=== PATIENT | male | born 1945 | race African-American/Black ===

== ENCOUNTER 2020-05-17 10:22 | Emergency (ER) | payer MEDICARE, MEDICAID ==
[~2020-05-17] VITALS: Ht 172.7 cm; Wt 109.0 kg
[2020-05-17 11:51] LABS: CHLORIDE 104 mEq/L (98-107)
[2020-05-17 12:32] LABS: BASOPHILS % 1.2 % (0.0-2.0); HEMATOCRIT. 30.3 % (42.0-52.0); HEMOGLOBIN. 10.1 g/dL (14.0-18.0); LYMPHOCYTES % 19.4 % (20.0-50.0); MEAN CORPUSCULAR HEMOGLOBIN 33.8 pg (28.0-32.0); MEAN CORPUSCULAR VOLUME 101.1 fL (80.0-94.0); MEAN PLATELET VOLUME 10.3 fl (7.4-10.4); MONOCYTES % 13.3 % (2.0-8.0); NEUTROPHILS % 63.1 % (40.0-76.0); PLATELET 92 x1000/uL (130-400); RED BLOOD CELL COUNT 2.99 mill/uL (4.7-6.1); RED CELL DISTRIBUTION WIDTH 16.8 % (11.6-14.6)
[2020-05-17] MEDS ORDERED: FUROSEMIDE 100MG/10ML VIAL IV STA (12:44)
[2020-05-17] MEDS ORDERED: INSULIN REGULAR (HUMULIN R) 300UNITS/3ML IV ONE (12:45)
[2020-05-17] MEDS ORDERED: ALBUTEROL (0.083%) 2.5MG/3ML NEB HHN ONE (12:45)
[2020-05-17] MEDS ORDERED: SODIUM BICARBONATE 8.4% 1 MEQ/ML 50ML SYR IV ONE (12:45)
[2020-05-17] MEDS ORDERED: CALCIUM CHLORIDE 1GM/10ML SYR IV ONE (12:45)
[2020-05-17] MEDS ORDERED: DEXTROSE 50% WATER 50ML SYRINGE IV ONE (12:45)
[2020-05-17 13:00] VITALS: BP 142/86
[2020-05-17] MEDS ORDERED: ACETAMINOPHEN 325MG TABLET PO PRN (14:15)
[2020-05-17] MEDS ORDERED: ONDANSETRON HCL 4MG/2ML INJ IV PRN (14:15)
[2020-05-17] MEDS ORDERED: CLONIDINE 0.1MG TABLET PO PRN (14:15)
[2020-05-17] MEDS ORDERED: DIPHENHYDRAMINE 50MG/ML VIAL IV PRN (14:15)
[2020-05-17] MEDS ORDERED: IPRATROPIUM/ALBUTEROL 0.5-3(2.5)MG/3ML NEB HHN PRN (14:15)
[2020-05-17 14:27] LABS: PHOSPHORUS 7.4 mg/dL (2.5-4.9)
== END 2020-05-17 14:15 | disposition left against medical advice (07) ==
LOC: ER 10:29 → CANBEDREQ 14:43
DX: E87.5 Hyperkalemia (principal); E87.70 Fluid overload, unspecified; Z91.15 Patient's noncompliance with renal dialysis; I13.2 Hypertensive heart and chronic kidney disease with heart failure and with stage 5 chronic kidney disease, or end stage renal disease; E11.22 Type 2 diabetes mellitus with diabetic chronic kidney disease; N18.6 End stage renal disease; I50.9 Heart failure, unspecified; Z99.2 Dependence on renal dialysis; Z79.4 Long term (current) use of insulin; Z71.89 Other specified counseling
CPT/HCPCS: 36415; 71045; 80053; 82962; 83735; 83880; 84100; 84484; 85025; 93005; 94640; 99285

== ENCOUNTER 2020-09-24 17:51 | Inpatient (IN) | payer MEDICARE, MEDICAID ==
[~2020-09-24] VITALS: Ht 185.4 cm; Wt 102.5 kg
[2020-09-24] MEDS ORDERED: NITROGLYCERIN OINT 1GM/INCH UDPKT TD ONE (18:30)
[2020-09-24] MEDS ORDERED: ASPIRIN 81MG TABLET PO ONE (18:30)
[2020-09-24] MEDS ORDERED: SODIUM CHLORIDE 0.9% 1,000 ML IV ONE (18:45)
[2020-09-24 19:08] LABS: BASOPHILS % 1.4 % (0.0-2.0); EOSINOPHILS % 5.9 % (0.0-5.0); HEMATOCRIT. 37.9 % (42.0-52.0); HEMOGLOBIN. 12.6 g/dL (14.0-18.0); LYMPHOCYTES % 25.1 % (20.0-50.0); MEAN CORPUSCULAR HEMOGLOBIN 33.4 pg (28.0-32.0); MEAN CORPUSCULAR VOLUME 100.1 fL (80.0-94.0); MONOCYTES % 14.8 % (2.0-8.0); NEUTROPHILS % 52.8 % (40.0-76.0); PLATELET 223 x1000/uL (130-400); RED BLOOD CELL COUNT 3.79 mill/uL (4.7-6.1); RED CELL DISTRIBUTION WIDTH 18.8 % (11.6-14.6)
[2020-09-24] MEDS ORDERED: VANCOMYCIN 1 G PREMIX 200 ML IV ONE (19:15)
[2020-09-24] MEDS ORDERED: SODIUM CHLORIDE 0.9% 1000ML BAG (SEPSIS BOLUS) IV ONE (19:15)
[2020-09-24] MEDS ORDERED: PIPERACILLIN/TAZ 3.375G PREMIX 50 ML IV ONE (19:15)
[2020-09-24 19:17] LABS: CHLORIDE 96 mEq/L (98-107)
[2020-09-24 19:20] LABS: INR 1.1; PROTHROMBIN TIME 11.6 sec (9.6-11.0)
[2020-09-24] MEDS ORDERED: CLONIDINE 0.1MG TABLET PO PRN (22:15)
[2020-09-24] MEDS ORDERED: GUAIFENESIN 200MG/10ML SUGAR FREE UDC PO PRN (22:15)
[2020-09-24] MEDS ORDERED: MAGNESIUM/ALUMINUM HYDROXIDE/SIMETHICONE 30ML UDC PO PRN (22:15)
[2020-09-24] MEDS ORDERED: TRAMADOL 50MG TABLET PO PRN (22:15)
[2020-09-24] MEDS ORDERED: IPRATROPIUM/ALBUTEROL 0.5-3(2.5)MG/3ML NEB NEB PRN (22:15)
[2020-09-24] MEDS ORDERED: DOCUSATE SODIUM 100MG CAPSULE PO PRN (22:15)
[2020-09-24] MEDS ORDERED: NITROGLYCERIN 0.4MG TABLET SL SL PRN (22:15)
[2020-09-24] MEDS ORDERED: ONDANSETRON HCL 4MG/2ML INJ IV PRN (22:15)
[2020-09-24] MEDS ORDERED: DIPHENHYDRAMINE 50MG/ML VIAL IV PRN (22:15)
[2020-09-24] MEDS ORDERED: PIPERACILLIN/TAZ 3.375G PREMIX 50 ML IV SCH (22:15)
[2020-09-24] MEDS ORDERED: ACETAMINOPHEN 325MG TABLET PO PRN ×2 (22:15)
[2020-09-24] MEDS ORDERED: ZOLPIDEM TARTRATE 5MG TABLET PO PRN (22:15)
[2020-09-24] MEDS ORDERED: SODIUM CHLORIDE 0.9% 500 ML IV ONE (22:45)
[2020-09-24 23:11] LABS: VITAMIN B12 SERUM 1446 pg/mL (211-911)
[2020-09-25] VITALS (12 sets, daily range): BP systolic 83–124; BP diastolic 54–72
[2020-09-25] MEDS ORDERED: PIPERACILLIN/TAZOBACTAM 2.25 G in DEXTROSE 5% WATER 50 ML IV SCH
[2020-09-25] MEDS: ENOXAPARIN 40MG/0.4ML SYR SUBCUT SCH ×2 (01:14→20:42)
[2020-09-25] MEDS ORDERED: NAPHADR EACHEYE (04:12)
[2020-09-25] MEDS ORDERED: WARF1TAB85 MT (04:12)
[2020-09-25] MEDS ORDERED: DEXT10TA4 MT (04:12)
[2020-09-25] MEDS ORDERED: CALC-1042 PO (04:12)
[2020-09-25] MEDS: ASCORBIC ACID 500 MG TABLET PO SCH ×2 (08:19→20:42)
[2020-09-25] MEDS: ZINC SULFATE 220 MG ( 50 ) CAPSULE PO SCH (08:19)
[2020-09-25] MEDS: CHOLECALCIFEROL (D3) 1000 UNIT TABLET PO SCH (08:20)
[2020-09-25] MEDS: SEVELAMER CARBONATE 800 MG TABLET PO SCH ×3 (08:20→18:07)
[2020-09-25] MEDS: FAMOTIDINE 20MG TABLET PO SCH (08:20)
[2020-09-25] MEDS: ASPIRIN 325MG EC TABLET PO SCH (08:20)
[2020-09-25] MEDS: PIPERACILLIN/TAZOBACTAM 2.25 G in DEXTROSE 5% WATER 50 ML IV SCH ×3 (08:23→23:41)
[2020-09-25] MEDS ORDERED: DEXTROSE 50% WATER 50ML SYRINGE IV PRN (09:15)
[2020-09-25] MEDS ORDERED: VANCOMYCIN 1 G PREMIX 200 ML IV NR (12:00)
[2020-09-25 12:13] LABS: HEMATOCRIT. 32.3 % (42.0-52.0); HEMOGLOBIN. 10.6 g/dL (14.0-18.0); MEAN CORPUSCULAR HEMOGLOBIN 33.1 pg (28.0-32.0); PLATELET 126 x1000/uL (130-400); RED BLOOD CELL COUNT 3.19 mill/uL (4.7-6.1); RED CELL DISTRIBUTION WIDTH 17.9 % (11.6-14.6)
[2020-09-25] MEDS: INSULIN LISPRO 100 UNITS/ML SUBCUT SCH ×3 (12:21→21:00)
[2020-09-25] MEDS: BLOOD SUGAR DIAGNOSTIC STRIP TEST SCH ×3 (12:21→21:00)
[2020-09-25 12:49] LABS: CHLORIDE 102 mEq/L (98-107)
[2020-09-25 12:57] LABS: PHOSPHORUS 4.8 mg/dL (2.5-4.9)
[2020-09-25 12:58] LABS: CREATINE KINASE MB FRACTION 2.3 ng/mL (0.5-3.6); LDL CHOLESTEROL 75 mg/dL (5-100)
[2020-09-25 12:59] LABS: CREATINE KINASE 217 IU/L (39-308)
[2020-09-25 13:00] LABS: HDL CHOLESTEROL 47 mg/dL (40-59)
[2020-09-25 16:38] LABS: PLATELET ESTIMATE DECREASED
[2020-09-25] MEDS ORDERED: ALBUMIN HUMAN 25GM/100ML (25%) IV NR (18:00)
[2020-09-25] MEDS: MIDODRINE HCL 2.5MG TABLET PO SCH (18:06)
[2020-09-25 18:40] LABS: CREATINE KINASE MB FRACTION 2.1 ng/mL (0.5-3.6)
[2020-09-25] MEDS ORDERED: ASPIRIN 81MG TABLET ONE (22:12)
[2020-09-26] VITALS (16 sets, daily range): BP systolic 38–143; BP diastolic 24–77
[2020-09-26 06:35] LABS: HEMATOCRIT. 31.2 % (42.0-52.0); HEMOGLOBIN. 10.5 g/dL (14.0-18.0); MEAN CORPUSCULAR VOLUME 101.1 fL (80.0-94.0); MEAN PLATELET VOLUME 9.7 fl (7.4-10.4); PLATELET 110 x1000/uL (130-400); RED BLOOD CELL COUNT 3.08 mill/uL (4.7-6.1); RED CELL DISTRIBUTION WIDTH 17.5 % (11.6-14.6)
[2020-09-26 06:46] LABS: PHOSPHORUS 5.7 mg/dL (2.5-4.9)
[2020-09-26] MEDS: BLOOD SUGAR DIAGNOSTIC STRIP TEST SCH ×4 (07:30→21:00)
[2020-09-26] MEDS: INSULIN LISPRO 100 UNITS/ML SUBCUT SCH ×4 (08:00→21:00)
[2020-09-26] MEDS: PIPERACILLIN/TAZOBACTAM 2.25 G in DEXTROSE 5% WATER 50 ML IV SCH ×3 (10:00→23:54)
[2020-09-26] MEDS: ASCORBIC ACID 500 MG TABLET PO SCH ×2 (10:01→21:03)
[2020-09-26] MEDS: FAMOTIDINE 20MG TABLET PO SCH (10:01)
[2020-09-26] MEDS: CHOLECALCIFEROL (D3) 1000 UNIT TABLET PO SCH (10:01)
[2020-09-26] MEDS: ZINC SULFATE 220 MG ( 50 ) CAPSULE PO SCH (10:01)
[2020-09-26] MEDS: MIDODRINE HCL 2.5MG TABLET PO SCH ×3 (10:04→17:51)
[2020-09-26] MEDS: ASPIRIN 325MG EC TABLET PO SCH (10:16)
[2020-09-26] MEDS: SEVELAMER CARBONATE 800 MG TABLET PO SCH ×3 (10:16→17:51)
[2020-09-26 13:40] LABS: PLATELET ESTIMATE DECREASED
[2020-09-26] MEDS: ENOXAPARIN 40MG/0.4ML SYR SUBCUT SCH (21:00)
[2020-09-27] VITALS (9 sets, daily range): BP systolic 95–120; BP diastolic 52–83
[2020-09-27 05:52] LABS: HEMATOCRIT. 31.6 % (42.0-52.0); HEMOGLOBIN. 10.5 g/dL (14.0-18.0); MEAN CORPUSCULAR HEMOGLOBIN 33.4 pg (28.0-32.0); MEAN CORPUSCULAR VOLUME 100.1 fL (80.0-94.0); MEAN PLATELET VOLUME 10.3 fl (7.4-10.4); PLATELET 122 x1000/uL (130-400); RED BLOOD CELL COUNT 3.16 mill/uL (4.7-6.1); RED CELL DISTRIBUTION WIDTH 17.9 % (11.6-14.6)
[2020-09-27] MEDS: BLOOD SUGAR DIAGNOSTIC STRIP TEST SCH ×2 (07:30→12:30)
[2020-09-27] MEDS: INSULIN LISPRO 100 UNITS/ML SUBCUT SCH ×2 (08:00→13:00)
[2020-09-27] MEDS: CHOLECALCIFEROL (D3) 1000 UNIT TABLET PO SCH (08:50)
[2020-09-27] MEDS: ZINC SULFATE 220 MG ( 50 ) CAPSULE PO SCH (08:50)
[2020-09-27] MEDS: SEVELAMER CARBONATE 800 MG TABLET PO SCH ×2 (08:50→14:08)
[2020-09-27] MEDS: ASCORBIC ACID 500 MG TABLET PO SCH (08:50)
[2020-09-27] MEDS: ASPIRIN 325MG EC TABLET PO SCH (08:50)
[2020-09-27] MEDS: PIPERACILLIN/TAZOBACTAM 2.25 G in DEXTROSE 5% WATER 50 ML IV SCH (08:50)
[2020-09-27] MEDS: FAMOTIDINE 20MG TABLET PO SCH (08:51)
[2020-09-27] MEDS: MIDODRINE HCL 2.5MG TABLET PO SCH ×2 (08:54→14:08)
[2020-09-27 13:23] LABS: PLATELET ESTIMATE SLIGHTLY DECREASED
[2020-09-27] MEDS ORDERED: VANCOMYCIN 1250MG in DEXTROSE 5% WATER 250ML IV NR (14:00)
== END 2020-09-27 18:35 | DRG 871 ==
LOC: ER 17:51 → MICUSO 21:49 → EDBEDREQTM 21:56 → EDBEDREQ 21:56 → 5EST 09-25 02:15
PROVIDERS: ADMIT Internal Medicine; ATTEND Internal Medicine
PROC: 5A1D70Z Performance of Urinary Filtration, Intermittent, Less than 6 Hours Per Day (ICD-10-PCS; principal; 2020-09-26)
DX: A41.9 Sepsis, unspecified organism (principal); J18.9 Pneumonia, unspecified organism; N18.6 End stage renal disease; R65.21 Severe sepsis with septic shock; E44.0 Moderate protein-calorie malnutrition; I50.30 Unspecified diastolic (congestive) heart failure; I13.2 Hypertensive heart and chronic kidney disease with heart failure and with stage 5 chronic kidney disease, or end stage renal disease; I42.9 Cardiomyopathy, unspecified; I95.9 Hypotension, unspecified; E87.5 Hyperkalemia; E11.22 Type 2 diabetes mellitus with diabetic chronic kidney disease; Z20.822 Contact with and (suspected) exposure to COVID-19; Z99.2 Dependence on renal dialysis; Z79.4 Long term (current) use of insulin; Z82.49 Family history of ischemic heart disease and other diseases of the circulatory system; Z95.810 Presence of automatic (implantable) cardiac defibrillator; Z68.29 Body mass index [BMI] 29.0-29.9, adult
CPT/HCPCS: 36415; 71045; 80048; 80053; 80061; 80202; 82550; 82553; 82607; 82962; 83036; 83605; 83615; 83735; 84100; 84145; 84484; 85025; 85379; 87426; 93005; 93970; 96365; 97162; 97166; 99291; J1200; J1650; J2543; J3370; J7030; J7040; J7060; P9047

== ENCOUNTER 2020-10-24 20:42 | Inpatient (IN) | payer MEDICARE, MEDICAID ==
[~2020-10-24] VITALS: Ht 180.3 cm; Wt 102.3 kg
[~2020-10-24 20:42] MED LIST: CALC-1042 PO; DEXT10TA4 MT; NAPHADR EACHEYE; WARF1TAB85 MT
[2020-10-24 21:45] LABS: BASOPHILS % 1.7 % (0.0-2.0); EOSINOPHILS % 3.5 % (0.0-5.0); HEMATOCRIT. 30.3 % (42.0-52.0); HEMOGLOBIN. 10.3 g/dL (14.0-18.0); LYMPHOCYTES % 9.2 % (20.0-50.0); MEAN CORPUSCULAR HEMOGLOBIN 33.6 pg (28.0-32.0); MEAN CORPUSCULAR VOLUME 98.7 fL (80.0-94.0); MEAN PLATELET VOLUME 9.8 fl (7.4-10.4); MONOCYTES % 9.4 % (2.0-8.0); NEUTROPHILS % 76.2 % (40.0-76.0); PLATELET 125 x1000/uL (130-400); RED BLOOD CELL COUNT 3.07 mill/uL (4.7-6.1); RED CELL DISTRIBUTION WIDTH 16.7 % (11.6-14.6)
[2020-10-24 21:53] LABS: CHLORIDE 99 mEq/L (98-107)
[2020-10-24 21:58] LABS: ETHANOL BLOOD < 10 mg/dL
[2020-10-24 22:03] LABS: T4 FREE 1.29 ng/dL (0.76-1.46)
[2020-10-24 22:11] LABS: INR 1.8; PARTIAL THROMBOPLASTIN TIME 40.8 sec (23.4-31.0); PROTHROMBIN TIME 18.8 sec (9.6-11.0)
[2020-10-25] MEDS ORDERED: HYDROCODONE/ACETAMINOPHEN 5/325MG TABLET PO PRN (04:00)
[2020-10-25] MEDS ORDERED: ENOXAPARIN 40MG/0.4ML SYR SUBCUT SCH (04:00)
[2020-10-25] MEDS ORDERED: CLONIDINE 0.1MG TABLET PO PRN (04:00)
[2020-10-25] MEDS ORDERED: ACETAMINOPHEN 325MG TABLET PO PRN (04:00)
[2020-10-25] MEDS ORDERED: ONDANSETRON HCL 4MG/2ML INJ IV PRN (04:00)
[2020-10-25] MEDS ORDERED: MORPHINE SULFATE 2 MG/ML CPJ (NOT FOR IM USE) IV PRN (04:00)
[2020-10-25 05:57] VITALS: BP 114/66
[2020-10-25] MEDS ORDERED: ENOXAPARIN 30MG/0.3ML SYR SUBCUT SCH ×2 (06:00→10:00)
[2020-10-25] MEDS ORDERED: ASPIRIN 81MG EC TABLET PO SCH (09:00)
[2020-10-25] MEDS ORDERED: MAGNESIUM/ALUMINUM HYDROXIDE/SIMETHICONE 30ML UDC PO PRN (09:00)
[2020-10-25] MEDS ORDERED: METOPROLOL TARTRATE 25MG TABLET PO SCH (09:00)
[2020-10-25] MEDS ORDERED: POTASSIUM CHLORIDE 20MEQ TABLET SR PO NR (09:00)
[2020-10-25] MEDS ORDERED: DOCUSATE SODIUM 100MG CAPSULE PO PRN (09:00)
[2020-10-25 12:00] VITALS: BP 99/59
[2020-10-25 13:11] VITALS: BP 126/78
[2020-10-25] MEDS ORDERED: AMIODARONE HCL 200 MG TABLET PO SCH (15:00)
== END 2020-10-25 18:32 | disposition home or self-care (01) | DRG 280 ==
LOC: ER 20:42 → 5EST 22:31 → EDBEDREQ 22:35 → EDBEDREQSVC 23:19 → ENRESERV 23:35
PROVIDERS: ADMIT Hospitalist; ATTEND Hospitalist
PROC: 4B02XTZ Measurement of Cardiac Defibrillator, External Approach (ICD-10-PCS; principal; 2020-10-24)
DX: T82.897A Other specified complication of cardiac prosthetic devices, implants and grafts, initial encounter (principal); N18.6 End stage renal disease; I21.A1 Myocardial infarction type 2; I50.23 Acute on chronic systolic (congestive) heart failure; R57.8 Other shock; I13.2 Hypertensive heart and chronic kidney disease with heart failure and with stage 5 chronic kidney disease, or end stage renal disease; E44.1 Mild protein-calorie malnutrition; C67.9 Malignant neoplasm of bladder, unspecified; I48.0 Paroxysmal atrial fibrillation; D63.1 Anemia in chronic kidney disease; E87.6 Hypokalemia; I36.1 Nonrheumatic tricuspid (valve) insufficiency; E11.22 Type 2 diabetes mellitus with diabetic chronic kidney disease; Z99.2 Dependence on renal dialysis; Z95.810 Presence of automatic (implantable) cardiac defibrillator; Z82.49 Family history of ischemic heart disease and other diseases of the circulatory system
CPT/HCPCS: 36415; 71045; 80053; 80320; 83735; 83880; 84439; 84443; 84484; 85025; 93005; 93306; 93970; 99291; J1650; G0480

== ENCOUNTER 2020-10-26 21:54 | Inpatient (IN) | payer MEDICARE, MEDICAID ==
[~2020-10-26] VITALS: Ht 181.6 cm; Wt 102.7 kg
[2020-10-26] MEDS ORDERED: ACETAMINOPHEN 325MG TABLET PO STA (22:20)
[2020-10-26] MEDS ORDERED: VANCOMYCIN 1 G PREMIX 200 ML IV ONE (22:30)
[2020-10-26] MEDS ORDERED: PIPERACILLIN/TAZ 3.375G PREMIX 50 ML IV ONE (22:30)
[2020-10-26 23:33] LABS: HEMATOCRIT. 28.3 % (42.0-52.0); HEMOGLOBIN. 9.8 g/dL (14.0-18.0); MEAN CORPUSCULAR HEMOGLOBIN 33.7 pg (28.0-32.0); MEAN CORPUSCULAR VOLUME 97.5 fL (80.0-94.0); MEAN PLATELET VOLUME 9.3 fl (7.4-10.4); PLATELET 123 x1000/uL (130-400); RED CELL DISTRIBUTION WIDTH 17.1 % (11.6-14.6)
[2020-10-26 23:37] LABS: CHLORIDE 96 mEq/L (98-107)
[2020-10-26 23:44] LABS: INR 1.4; PROTHROMBIN TIME 14.3 sec (9.6-11.0)
[2020-10-26] MEDS ORDERED: AMIODARONE HCL 150 MG in DEXT 5% WATER 97 ML IV ONE (23:45)
[2020-10-27] VITALS (37 sets, daily range): BP systolic 74–118; BP diastolic 44–77
[2020-10-27] MEDS: HYDROCODONE/ACETAMINOPHEN 10/325MG TABLET PO PRN ×2 (03:16→23:33)
[2020-10-27 04:00] LABS: PLATELET ESTIMATE SLIGHTLY DECREASED
[2020-10-27 09:36] LABS: HEMATOCRIT. 28.6 % (42.0-52.0); HEMOGLOBIN. 9.5 g/dL (14.0-18.0); MEAN CORPUSCULAR HEMOGLOBIN 32.9 pg (28.0-32.0); MEAN CORPUSCULAR VOLUME 99.4 fL (80.0-94.0); PLATELET 111 x1000/uL (130-400); RED BLOOD CELL COUNT 2.88 mill/uL (4.7-6.1); RED CELL DISTRIBUTION WIDTH 17.1 % (11.6-14.6)
[2020-10-27] MEDS: FOLIC ACID/VITAMIN B COMP W-C TABLET PO SCH (09:54)
[2020-10-27] MEDS: SEVELAMER CARBONATE 800 MG TABLET PO SCH ×3 (09:55→17:33)
[2020-10-27] MEDS ORDERED: PIPERACILLIN/TAZOBACTAM 3.375 G in DEXT 5% WATER 100 ML IV SCH (11:00)
[2020-10-27] MEDS ORDERED: ONDANSETRON HCL 4MG/2ML INJ IV PRN (11:00)
[2020-10-27] MEDS: MIDODRINE HCL 5MG TABLET PO SCH ×2 (11:38→17:33)
[2020-10-27] MEDS ORDERED: VANCOMYCIN 1 G PREMIX 200 ML IV SCH (13:00)
[2020-10-27] MEDS: PIPERACILLIN/TAZOBACTAM 2.25 G in DEXTROSE 5% WATER 50 ML IV SCH (13:02)
[2020-10-27] MEDS: LACTULOSE 20G/30ML UDC PO PRN ×2 (14:09→23:32)
[2020-10-27] MEDS: DOCUSATE SODIUM 100MG CAPSULE PO SCH (17:33)
[2020-10-27 19:31] LABS: PLATELET ESTIMATE DECREASED
[2020-10-27] MEDS ORDERED: EPOETIN ALFA-EPBX 10,000 UNIT/ML VIAL SUBCUT SCH (21:00)
[2020-10-28] VITALS (62 sets, daily range): BP systolic 60–129; BP diastolic 23–93
[2020-10-28] MEDS: PIPERACILLIN/TAZOBACTAM 2.25 G in DEXTROSE 5% WATER 50 ML IV SCH (01:21)
[2020-10-28 06:05] LABS: HEMATOCRIT. 28.3 % (42.0-52.0); HEMOGLOBIN. 9.3 g/dL (14.0-18.0); MEAN CORPUSCULAR HEMOGLOBIN 33.1 pg (28.0-32.0); MEAN CORPUSCULAR VOLUME 100.4 fL (80.0-94.0); MEAN PLATELET VOLUME 10.1 fl (7.4-10.4); PLATELET 116 x1000/uL (130-400); RED BLOOD CELL COUNT 2.82 mill/uL (4.7-6.1); RED CELL DISTRIBUTION WIDTH 17.2 % (11.6-14.6)
[2020-10-28 06:18] LABS: PHOSPHORUS 4.3 mg/dL (2.5-4.9)
[2020-10-28] MEDS ORDERED: NOREPINEPHRINE 32 MG in DEXT 5% WATER 218 ML IV PRN (08:00)
[2020-10-28] MEDS: MIDODRINE HCL 5MG TABLET PO SCH ×3 (08:28→16:55)
[2020-10-28] MEDS: DOCUSATE SODIUM 100MG CAPSULE PO SCH ×2 (08:28→16:55)
[2020-10-28] MEDS: SEVELAMER CARBONATE 800 MG TABLET PO SCH ×3 (08:28→17:33)
[2020-10-28] MEDS: FOLIC ACID/VITAMIN B COMP W-C TABLET PO SCH (08:28)
[2020-10-28] MEDS ORDERED: LIDOCAINE HCL 1% 20ML VIAL (Pyxis) INJ ONE (08:57)
[2020-10-28] MEDS ORDERED: AMIODARONE HCL 200 MG TABLET PO SCH (09:00)
[2020-10-28] MEDS ORDERED: APIXABAN 2.5 MG TABLET PO SCH (09:00)
[2020-10-28] MEDS ORDERED: PIPERACILLIN/TAZOBACTAM 2.25 G in DEXTROSE 5% WATER 50 ML IV SCH (10:00)
[2020-10-28 11:46] LABS: T4 FREE 1.36 ng/dL (0.76-1.46)
[2020-10-28] MEDS: ACETAMINOPHEN 325MG TABLET PO PRN (12:51)
[2020-10-28] MEDS ORDERED: CEFEPIME 1,000 MG in DEXTROSE 5% WATER 50 ML IV SCH (14:00)
[2020-10-28 14:09] LABS: PLATELET ESTIMATE SLIGHTLY DECREASED
[2020-10-28] MEDS ORDERED: VANCOMYCIN 1 G PREMIX 200 ML IV NR (15:00)
[2020-10-28] MEDS: HYDROCODONE/ACETAMINOPHEN 5/325MG TABLET PO PRN (16:54)
[2020-10-28 18:04] LABS: CREATINE KINASE 45 IU/L (39-308)
[2020-10-28 18:05] LABS: CREATINE KINASE MB FRACTION < 1.0 ng/mL (0.5-3.6)
[2020-10-28] MEDS ORDERED: MORPHINE SULFATE 2 MG/ML CPJ (NOT FOR IM USE) IV NR (18:35)
[2020-10-28] MEDS: ENOXAPARIN 100MG/ML SYR SUBCUT SCH (22:31)
[2020-10-28 23:53] LABS: CREATINE KINASE 39 IU/L (39-308)
[2020-10-28 23:54] LABS: CREATINE KINASE MB FRACTION < 1.0 ng/mL (0.5-3.6)
[2020-10-29] VITALS (42 sets, daily range): BP systolic 93–150; BP diastolic 47–83
[2020-10-29] MEDS: LACTULOSE 20G/30ML UDC PO PRN (00:01)
[2020-10-29 05:52] LABS: BASOPHILS % 0.9 % (0.0-2.0); EOSINOPHILS % 1.5 % (0.0-5.0); HEMATOCRIT. 28.8 % (42.0-52.0); HEMOGLOBIN. 9.5 g/dL (14.0-18.0); LYMPHOCYTES % 7.2 % (20.0-50.0); MEAN CORPUSCULAR HEMOGLOBIN 32.8 pg (28.0-32.0); MEAN CORPUSCULAR VOLUME 100.1 fL (80.0-94.0); MEAN PLATELET VOLUME 10.2 fl (7.4-10.4); MONOCYTES % 11.7 % (2.0-8.0); NEUTROPHILS % 78.7 % (40.0-76.0); PLATELET 136 x1000/uL (130-400); RED BLOOD CELL COUNT 2.88 mill/uL (4.7-6.1); RED CELL DISTRIBUTION WIDTH 17.2 % (11.6-14.6)
[2020-10-29 05:56] LABS: PHOSPHORUS 4.2 mg/dL (2.5-4.9)
[2020-10-29 06:02] LABS: CREATINE KINASE MB FRACTION 1.4 ng/mL (0.5-3.6)
[2020-10-29] MEDS: DOCUSATE SODIUM 100MG CAPSULE PO SCH ×2 (08:55→17:21)
[2020-10-29] MEDS: MIDODRINE HCL 5MG TABLET PO SCH ×3 (08:55→17:21)
[2020-10-29] MEDS: SEVELAMER CARBONATE 800 MG TABLET PO SCH ×3 (08:55→17:21)
[2020-10-29] MEDS: FOLIC ACID/VITAMIN B COMP W-C TABLET PO SCH (09:03)
[2020-10-29] MEDS ORDERED: LACTULOSE 20G/30ML UDC PO NR (11:00)
[2020-10-29] MEDS: ACETAMINOPHEN 325MG TABLET PO PRN (13:28)
[2020-10-29] MEDS: DIPHENHYDRAMINE 50MG/ML VIAL IV PRN (13:45)
[2020-10-29] MEDS ORDERED: CEFEPIME 1,000 MG in DEXTROSE 5% WATER 50 ML IV SCH (14:00)
[2020-10-29] MEDS: ENOXAPARIN 100MG/ML SYR SUBCUT SCH (21:40)
[2020-10-29] MEDS: HYDROCODONE/ACETAMINOPHEN 10/325MG TABLET PO PRN (22:30)
[2020-10-30] VITALS (12 sets, daily range): BP systolic 116–147; BP diastolic 54–97
[2020-10-30] MEDS: CEFTRIAXONE 1,000 MG in DEXTROSE 5% WATER 50 ML IV SCH ×2 (00:29→21:06)
[2020-10-30 06:50] LABS: BASOPHILS % 0.8 % (0.0-2.0); EOSINOPHILS % 2.3 % (0.0-5.0); HEMATOCRIT. 31.5 % (42.0-52.0); HEMOGLOBIN. 10.1 g/dL (14.0-18.0); LYMPHOCYTES % 10.7 % (20.0-50.0); MEAN CORPUSCULAR HEMOGLOBIN 32.7 pg (28.0-32.0); MEAN CORPUSCULAR VOLUME 102.2 fL (80.0-94.0); MEAN PLATELET VOLUME 9.9 fl (7.4-10.4); MONOCYTES % 12.3 % (2.0-8.0); NEUTROPHILS % 73.9 % (40.0-76.0); PLATELET 146 x1000/uL (130-400); RED BLOOD CELL COUNT 3.08 mill/uL (4.7-6.1); RED CELL DISTRIBUTION WIDTH 17.6 % (11.6-14.6)
[2020-10-30 07:02] LABS: PHOSPHORUS 3.6 mg/dL (2.5-4.9)
[2020-10-30] MEDS: SEVELAMER CARBONATE 800 MG TABLET PO SCH (07:53)
[2020-10-30] MEDS: MIDODRINE HCL 5MG TABLET PO SCH (08:52)
[2020-10-30] MEDS: FOLIC ACID/VITAMIN B COMP W-C TABLET PO SCH (08:52)
[2020-10-30] MEDS: DOCUSATE SODIUM 100MG CAPSULE PO SCH ×2 (08:52→18:28)
[2020-10-30] MEDS: HYDROCODONE/ACETAMINOPHEN 10/325MG TABLET PO PRN (08:53)
[2020-10-30] MEDS ORDERED: MAGNESIUM CITRATE 300ML SOLUTION PO NR (11:00)
[2020-10-30] MEDS: ENOXAPARIN 100MG/ML SYR SUBCUT SCH (21:07)
[2020-10-31] VITALS (12 sets, daily range): BP systolic 102–142; BP diastolic 50–97
[2020-10-31 07:02] LABS: BASOPHILS % 0.9 % (0.0-2.0); EOSINOPHILS % 1.9 % (0.0-5.0); HEMATOCRIT. 29.1 % (42.0-52.0); HEMOGLOBIN. 9.6 g/dL (14.0-18.0); LYMPHOCYTES % 9.7 % (20.0-50.0); MEAN CORPUSCULAR HEMOGLOBIN 33.1 pg (28.0-32.0); MEAN CORPUSCULAR VOLUME 100.5 fL (80.0-94.0); MEAN PLATELET VOLUME 9.8 fl (7.4-10.4); MONOCYTES % 12.2 % (2.0-8.0); NEUTROPHILS % 75.3 % (40.0-76.0); PLATELET 154 x1000/uL (130-400); RED BLOOD CELL COUNT 2.89 mill/uL (4.7-6.1); RED CELL DISTRIBUTION WIDTH 17.3 % (11.6-14.6)
[2020-10-31] MEDS: DOCUSATE SODIUM 100MG CAPSULE PO SCH ×2 (08:32→16:53)
[2020-10-31] MEDS: FOLIC ACID/VITAMIN B COMP W-C TABLET PO SCH (08:32)
[2020-10-31] MEDS ORDERED: MAGNESIUM CITRATE 300ML SOLUTION PO NR (09:00)
[2020-10-31] MEDS: CEFTRIAXONE 1,000 MG in DEXTROSE 5% WATER 50 ML IV SCH (20:29)
[2020-10-31] MEDS: HYDROCODONE/ACETAMINOPHEN 10/325MG TABLET PO PRN (23:35)
[2020-11-01] VITALS (10 sets, daily range): BP systolic 100–135; BP diastolic 52–91
[2020-11-01 08:33] LABS: HEMATOCRIT. 32.5 % (42.0-52.0); HEMOGLOBIN. 10.4 g/dL (14.0-18.0); MEAN CORPUSCULAR HEMOGLOBIN 32.9 pg (28.0-32.0); MEAN CORPUSCULAR VOLUME 103.3 fL (80.0-94.0); MEAN PLATELET VOLUME 9.4 fl (7.4-10.4); PLATELET 147 x1000/uL (130-400); RED BLOOD CELL COUNT 3.15 mill/uL (4.7-6.1); RED CELL DISTRIBUTION WIDTH 17.2 % (11.6-14.6)
[2020-11-01] MEDS: DOCUSATE SODIUM 100MG CAPSULE PO SCH ×2 (08:34→17:00)
[2020-11-01] MEDS: FOLIC ACID/VITAMIN B COMP W-C TABLET PO SCH (08:34)
[2020-11-01 13:10] LABS: PLATELET ESTIMATE NORMAL
[2020-11-01] MEDS: HYDROCODONE/ACETAMINOPHEN 5/325MG TABLET PO PRN (18:42)
[2020-11-01] MEDS: CEFTRIAXONE 1,000 MG in DEXTROSE 5% WATER 50 ML IV SCH (20:24)
[2020-11-02] VITALS (14 sets, daily range): BP systolic 101–137; BP diastolic 55–81
[2020-11-02 06:49] LABS: BASOPHILS % 0.7 % (0.0-2.0); HEMATOCRIT. 29.7 % (42.0-52.0); HEMOGLOBIN. 9.5 g/dL (14.0-18.0); LYMPHOCYTES % 10.4 % (20.0-50.0); MEAN CORPUSCULAR HEMOGLOBIN 32.9 pg (28.0-32.0); MEAN CORPUSCULAR VOLUME 102.6 fL (80.0-94.0); MEAN PLATELET VOLUME 9.9 fl (7.4-10.4); MONOCYTES % 14.1 % (2.0-8.0); NEUTROPHILS % 72.8 % (40.0-76.0); PLATELET 131 x1000/uL (130-400); RED BLOOD CELL COUNT 2.89 mill/uL (4.7-6.1); RED CELL DISTRIBUTION WIDTH 17.7 % (11.6-14.6)
[2020-11-02] MEDS ORDERED: FENTANYL CITRATE/PF 50MCG/ML 2ML VIAL ONE (08:04)
[2020-11-02] MEDS ORDERED: LIDOCAINE HCL 1% 20ML VIAL (Pyxis) INJ ONE (08:05)
[2020-11-02] MEDS ORDERED: MIDAZOLAM HCL 2 MG/2 ML VIAL ONE (08:05)
[2020-11-02] MEDS: DOCUSATE SODIUM 100MG CAPSULE PO SCH ×2 (09:00→16:26)
[2020-11-02] MEDS: FOLIC ACID/VITAMIN B COMP W-C TABLET PO SCH (09:00)
[2020-11-02] MEDS ORDERED: CEFAZOLIN 1000MG PREMIX 50 ML IV ONE (09:30)
[2020-11-02] MEDS ORDERED: HEPARIN SODIUM 1,000 UNIT/1ML VIAL IV ONE (14:13)
[2020-11-02] MEDS: HYDROCODONE/ACETAMINOPHEN 5/325MG TABLET PO PRN (16:25)
[2020-11-02] MEDS: CEFTRIAXONE 1,000 MG in DEXTROSE 5% WATER 50 ML IV SCH (21:13)
[2020-11-03] VITALS (12 sets, daily range): BP systolic 110–136; BP diastolic 56–86
[2020-11-03] MEDS: DIPHENHYDRAMINE 50MG/ML VIAL IV PRN (03:06)
[2020-11-03 06:26] LABS: HEMATOCRIT. 27.7 % (42.0-52.0); MEAN CORPUSCULAR HEMOGLOBIN 32.7 pg (28.0-32.0); MEAN PLATELET VOLUME 9.5 fl (7.4-10.4); PLATELET 154 x1000/uL (130-400); RED BLOOD CELL COUNT 2.74 mill/uL (4.7-6.1)
[2020-11-03] MEDS: DOCUSATE SODIUM 100MG CAPSULE PO SCH ×2 (08:48→17:37)
[2020-11-03] MEDS: ACETAMINOPHEN 325MG TABLET PO PRN (08:48)
[2020-11-03] MEDS: FOLIC ACID/VITAMIN B COMP W-C TABLET PO SCH (08:48)
[2020-11-03 13:11] LABS: PLATELET ESTIMATE NORMAL
[2020-11-03] MEDS: CEFTRIAXONE 1,000 MG in DEXTROSE 5% WATER 50 ML IV SCH (20:27)
[2020-11-03] MEDS ORDERED: EPOETIN ALFA-EPBX 10,000 UNIT/ML VIAL SUBCUT SCH (21:00)
[2020-11-04] VITALS (7 sets, daily range): BP systolic 118–141; BP diastolic 67–86
[2020-11-04] MEDS: ACETAMINOPHEN 325MG TABLET PO PRN (06:27)
[2020-11-04] MEDS: DOCUSATE SODIUM 100MG CAPSULE PO SCH (08:11)
[2020-11-04] MEDS: FOLIC ACID/VITAMIN B COMP W-C TABLET PO SCH (08:11)
== END 2020-11-04 12:05 | disposition home or self-care (01) | DRG 853 ==
LOC: ER 21:54 → EDBEDREQ 10-27 00:38 → EDBEDREQTM 10-27 00:38 → EDBEDREQDT 10-27 00:38 → EDBEDREQSVC 10-27 00:38 → CANBEDREQ 10-27 00:39 → CANRESERV 10-27 01:23 → ENRESERV 10-27 01:23 → CVICU 10-27 02:18 → EDBEDREQSVC 10-27 02:21 → EDBEDREQTM 10-27 02:21 → ENRESERV 10-27 03:15 → 3WST 10-29 20:12
PROVIDERS: ADMIT Internal Medicine; ATTEND Internal Medicine
PROC: 4B02XTZ Measurement of Cardiac Defibrillator, External Approach (ICD-10-PCS; principal; 2020-10-28)
PROC: 05H633Z Insertion of Infusion Device into Left Subclavian Vein, Percutaneous Approach (ICD-10-PCS; 2020-10-28)
PROC: 5A1D70Z Performance of Urinary Filtration, Intermittent, Less than 6 Hours Per Day (ICD-10-PCS; 2020-10-28)
PROC: B547ZZA Ultrasonography of Left Subclavian Vein, Guidance (ICD-10-PCS; 2020-10-28)
PROC: 5A1D70Z Performance of Urinary Filtration, Intermittent, Less than 6 Hours Per Day (ICD-10-PCS; 2020-10-29)
PROC: 5A1D70Z Performance of Urinary Filtration, Intermittent, Less than 6 Hours Per Day (ICD-10-PCS; 2020-10-31)
PROC: 02583ZZ Destruction of Conduction Mechanism, Percutaneous Approach (ICD-10-PCS; 2020-11-02)
PROC: 02K83ZZ Map Conduction Mechanism, Percutaneous Approach (ICD-10-PCS; 2020-11-02)
PROC: 5A1D70Z Performance of Urinary Filtration, Intermittent, Less than 6 Hours Per Day (ICD-10-PCS; 2020-11-02)
DX: A41.51 Sepsis due to Escherichia coli [E. coli] (principal); I50.23 Acute on chronic systolic (congestive) heart failure; J96.90 Respiratory failure, unspecified, unspecified whether with hypoxia or hypercapnia; N18.6 End stage renal disease; R65.21 Severe sepsis with septic shock; D68.9 Coagulation defect, unspecified; E44.0 Moderate protein-calorie malnutrition; E87.1 Hypo-osmolality and hyponatremia; I13.2 Hypertensive heart and chronic kidney disease with heart failure and with stage 5 chronic kidney disease, or end stage renal disease; I42.9 Cardiomyopathy, unspecified; I47.2 Ventricular tachycardia; I48.19 Other persistent atrial fibrillation; I48.4 Atypical atrial flutter; C67.9 Malignant neoplasm of bladder, unspecified; D64.9 Anemia, unspecified; K40.90 Unilateral inguinal hernia, without obstruction or gangrene, not specified as recurrent; D69.6 Thrombocytopenia, unspecified; E11.22 Type 2 diabetes mellitus with diabetic chronic kidney disease; E66.9 Obesity, unspecified; I07.1 Rheumatic tricuspid insufficiency; I27.20 Pulmonary hypertension, unspecified; I48.0 Paroxysmal atrial fibrillation; I95.89 Other hypotension; Z20.822 Contact with and (suspected) exposure to COVID-19; D72.819 Decreased white blood cell count, unspecified; I49.3 Ventricular premature depolarization; K59.00 Constipation, unspecified; Z82.49 Family history of ischemic heart disease and other diseases of the circulatory system; Z83.3 Family history of diabetes mellitus; Z95.810 Presence of automatic (implantable) cardiac defibrillator; Z99.2 Dependence on renal dialysis; Z87.891 Personal history of nicotine dependence; Z68.31 Body mass index [BMI] 31.0-31.9, adult
CPT/HCPCS: 36415; 71045; 74176; 76937; 80048; 80053; 80061; 80202; 82550; 82553; 83036; 83735; 83880; 84100; 84145; 84439; 84443; 84484; 85025; 85379; 87077; 87186; 87426; 93005; 93306; 93650; 93970; 99291; C1725; C1731; C1732; C1893; J0282; J0690; J0692; J0696; J0885; J1200; J1644; J1650; J2250; J2270; J2543; J3010; J3370; J3490; J7060

== ENCOUNTER 2020-11-28 03:52 | Inpatient (IN) | payer MEDICARE, MEDICAID ==
[~2020-11-28] VITALS: Ht 180.3 cm; Wt 103.4 kg
[~2020-11-28 03:52] MED LIST changes: -WARF1TAB85 MT
[2020-11-28] MEDS ORDERED: ONDANSETRON HCL 4MG/2ML INJ IV STA (04:30)
[2020-11-28] MEDS ORDERED: MORPHINE SULFATE 4 MG/ML CPJ (NOT FOR IM USE) IV STA (04:30)
[2020-11-28 05:10] LABS: EOSINOPHILS % 6.4 % (0.0-5.0); HEMATOCRIT. 31.1 % (42.0-52.0); HEMOGLOBIN. 9.8 g/dL (14.0-18.0); LYMPHOCYTES % 23.4 % (20.0-50.0); MEAN CORPUSCULAR HEMOGLOBIN 32.1 pg (28.0-32.0); MEAN CORPUSCULAR VOLUME 102.2 fL (80.0-94.0); MEAN PLATELET VOLUME 9.7 fl (7.4-10.4); MONOCYTES % 12.7 % (2.0-8.0); NEUTROPHILS % 56.5 % (40.0-76.0); PLATELET 137 x1000/uL (130-400); RED BLOOD CELL COUNT 3.04 mill/uL (4.7-6.1); RED CELL DISTRIBUTION WIDTH 18.3 % (11.6-14.6)
[2020-11-28 05:19] LABS: CHLORIDE 101 mEq/L (98-107)
[2020-11-28] MEDS ORDERED: FOLIC ACID/VITAMIN B COMP W-C TABLET PO SCH (09:00)
[2020-11-28] MEDS: DOCUSATE SODIUM SUGAR FREE 100MG/10ML UDC PO SCH ×2 (10:50→17:00)
[2020-11-28] MEDS: IBUPROFEN 600MG TABLET PO PRN (10:55)
[2020-11-28] MEDS ORDERED: ONDANSETRON HCL 4MG/2ML INJ IV PRN (15:00)
[2020-11-28] MEDS ORDERED: MAGNESIUM/ALUMINUM HYDROXIDE/SIMETHICONE 30ML UDC PO PRN (15:00)
[2020-11-28] MEDS ORDERED: GUAIFENESIN 200MG/10ML SUGAR FREE UDC PO PRN (15:00)
[2020-11-28] MEDS ORDERED: IPRATROPIUM/ALBUTEROL 0.5-3(2.5)MG/3ML NEB HHN PRN (15:00)
[2020-11-28] MEDS ORDERED: ACETAMINOPHEN 325MG TABLET PO PRN ×2 (15:00)
[2020-11-28] MEDS ORDERED: DIPHENHYDRAMINE 50MG/ML VIAL IV PRN (15:00)
[2020-11-28] MEDS: ENOXAPARIN 40MG/0.4ML SYR SUBCUT SCH (16:11)
[2020-11-28] MEDS: DOCUSATE SODIUM 100MG CAPSULE PO SCH (17:00)
[2020-11-28] MEDS ORDERED: FAMOTIDINE 20MG TABLET PO SCH (21:00)
[2020-11-28] MEDS: FAMOTIDINE 20MG TABLET PO SCH (21:51)
[2020-11-28] MEDS: EPOETIN ALFA-EPBX 4,000 UNIT/ML VIAL SUBCUT SCH (21:51)
[2020-11-28] MEDS: SODIUM CHLORIDE 0.9% INJ 3ML FLUSH IVF SCH (22:16)
[2020-11-28 23:30] VITALS: BP 157/88
[2020-11-29] MEDS: ZOLPIDEM TARTRATE 5MG TABLET PO PRN (00:30)
[2020-11-29] MEDS: IBUPROFEN 600MG TABLET PO PRN ×3 (00:30→20:21)
[2020-11-29 00:49] VITALS: BP 157/88
[2020-11-29] MEDS ORDERED: CALC667C MT (01:38)
[2020-11-29] MEDS ORDERED: ATOR-2 MT (01:39)
[2020-11-29] MEDS ORDERED: FOLI-43 MT (01:40)
[2020-11-29] MEDS ORDERED: METO-396 MT (01:40)
[2020-11-29] MEDS ORDERED: DIPH-909 PO (01:41)
[2020-11-29 04:00] VITALS: BP 123/63
[2020-11-29] MEDS: SODIUM CHLORIDE 0.9% INJ 3ML FLUSH IVF SCH ×3 (05:56→22:00)
[2020-11-29] MEDS ORDERED: *PATIENT'S OWN MEDICATION STORAGE XX SCH (06:15)
[2020-11-29 07:21] LABS: BASOPHILS % 1.1 % (0.0-2.0); EOSINOPHILS % 6.8 % (0.0-5.0); HEMATOCRIT. 29.9 % (42.0-52.0); LYMPHOCYTES % 28.4 % (20.0-50.0); MEAN CORPUSCULAR HEMOGLOBIN 33.5 pg (28.0-32.0); MEAN CORPUSCULAR VOLUME 100.1 fL (80.0-94.0); MEAN PLATELET VOLUME 10.3 fl (7.4-10.4); MONOCYTES % 14.4 % (2.0-8.0); NEUTROPHILS % 49.3 % (40.0-76.0); PLATELET 115 x1000/uL (130-400); RED BLOOD CELL COUNT 2.98 mill/uL (4.7-6.1); RED CELL DISTRIBUTION WIDTH 17.6 % (11.6-14.6)
[2020-11-29 07:46] LABS: PHOSPHORUS 6.1 mg/dL (2.5-4.9)
[2020-11-29 08:53] VITALS: BP 173/89
[2020-11-29] MEDS: DOCUSATE SODIUM 100MG CAPSULE PO SCH ×2 (09:18→17:00)
[2020-11-29] MEDS: FOLIC ACID/VITAMIN B COMP W-C TABLET PO SCH (09:19)
[2020-11-29] MEDS: ZINC SULFATE 220 MG ( 50 ) CAPSULE PO SCH (09:19)
[2020-11-29] MEDS: CHOLECALCIFEROL (D3) 1000 UNIT TABLET PO SCH (09:19)
[2020-11-29] MEDS: ASCORBIC ACID 500 MG TABLET PO SCH (09:22)
[2020-11-29] MEDS: CLONIDINE 0.1MG TABLET PO PRN (09:22)
[2020-11-29] MEDS: DOCUSATE SODIUM SUGAR FREE 100MG/10ML UDC PO SCH ×2 (09:24→17:00)
[2020-11-29 11:47] VITALS: BP 139/58
[2020-11-29] MEDS: CALCIUM ACETATE 667MG CAPSULE PO SCH ×2 (12:50→18:24)
[2020-11-29] MEDS: ENOXAPARIN 40MG/0.4ML SYR SUBCUT SCH (16:00)
[2020-11-29 16:27] VITALS: BP 128/95
[2020-11-29 20:00] VITALS: BP 102/45
[2020-11-29] MEDS: FAMOTIDINE 20MG TABLET PO SCH (20:19)
[2020-11-30] VITALS: BP 122/67
[2020-11-30] MEDS ORDERED: HYDROCODONE/ACETAMINOPHEN 10/325MG TABLET PO PRN (01:30)
[2020-11-30] MEDS: ZOLPIDEM TARTRATE 5MG TABLET PO PRN (02:16)
[2020-11-30 04:00] VITALS: BP 166/85
[2020-11-30 04:30] VITALS: BP 118/66
[2020-11-30] MEDS: SODIUM CHLORIDE 0.9% INJ 3ML FLUSH IVF SCH ×3 (06:00→20:55)
[2020-11-30] MEDS: CALCIUM ACETATE 667MG CAPSULE PO SCH ×3 (06:48→18:00)
[2020-11-30 08:00] VITALS: BP 124/69
[2020-11-30] MEDS: DOCUSATE SODIUM SUGAR FREE 100MG/10ML UDC PO SCH ×2 (09:00→17:00)
[2020-11-30] MEDS: DOCUSATE SODIUM 100MG CAPSULE PO SCH ×2 (09:51→17:49)
[2020-11-30] MEDS: CHOLECALCIFEROL (D3) 1000 UNIT TABLET PO SCH (09:52)
[2020-11-30] MEDS: FOLIC ACID/VITAMIN B COMP W-C TABLET PO SCH (09:52)
[2020-11-30] MEDS: ASCORBIC ACID 500 MG TABLET PO SCH (09:52)
[2020-11-30] MEDS: ZINC SULFATE 220 MG ( 50 ) CAPSULE PO SCH (10:01)
[2020-11-30 16:00] VITALS: BP 149/74
[2020-11-30] MEDS: ENOXAPARIN 40MG/0.4ML SYR SUBCUT SCH (17:51)
[2020-11-30] MEDS: FAMOTIDINE 20MG TABLET PO SCH (20:54)
[2020-11-30] MEDS: CLONIDINE 0.1MG TABLET PO PRN (20:55)
[2020-11-30 21:02] VITALS: BP 167/92
[2020-11-30] MEDS: EPOETIN ALFA-EPBX 4,000 UNIT/ML VIAL SUBCUT SCH (21:59)
[2020-12-01] VITALS (8 sets, daily range): BP systolic 140–165; BP diastolic 71–88
[2020-12-01] MEDS: CHOLECALCIFEROL (D3) 1000 UNIT TABLET PO SCH (09:07)
[2020-12-01] MEDS: ZINC SULFATE 220 MG ( 50 ) CAPSULE PO SCH (09:07)
[2020-12-01] MEDS: CALCIUM ACETATE 667MG CAPSULE PO SCH ×3 (09:07→17:40)
[2020-12-01] MEDS: ASCORBIC ACID 500 MG TABLET PO SCH (09:07)
[2020-12-01] MEDS: FOLIC ACID/VITAMIN B COMP W-C TABLET PO SCH (09:07)
[2020-12-01] MEDS: CLONIDINE 0.1MG TABLET PO PRN (09:08)
[2020-12-01] MEDS: DOCUSATE SODIUM SUGAR FREE 100MG/10ML UDC PO SCH ×2 (09:13→17:00)
[2020-12-01 09:47] LABS: BASOPHILS % 0.7 % (0.0-2.0); EOSINOPHILS % 7.1 % (0.0-5.0); HEMATOCRIT. 30.6 % (42.0-52.0); HEMOGLOBIN. 10.4 g/dL (14.0-18.0); LYMPHOCYTES % 32.6 % (20.0-50.0); MEAN CORPUSCULAR HEMOGLOBIN 33.7 pg (28.0-32.0); MEAN CORPUSCULAR VOLUME 99.7 fL (80.0-94.0); MEAN PLATELET VOLUME 10.1 fl (7.4-10.4); MONOCYTES % 12.8 % (2.0-8.0); NEUTROPHILS % 46.8 % (40.0-76.0); PLATELET 123 x1000/uL (130-400); RED BLOOD CELL COUNT 3.07 mill/uL (4.7-6.1); RED CELL DISTRIBUTION WIDTH 18.3 % (11.6-14.6)
[2020-12-01 10:21] LABS: PHOSPHORUS 6.1 mg/dL (2.5-4.9)
[2020-12-01] MEDS: SODIUM CHLORIDE 0.9% INJ 3ML FLUSH IVF SCH (13:04)
[2020-12-01] MEDS: IBUPROFEN 600MG TABLET PO PRN (17:41)
[2020-12-01] MEDS: ENOXAPARIN 40MG/0.4ML SYR SUBCUT SCH (17:42)
== END 2020-12-01 18:00 | disposition home or self-care (01) | DRG 291 ==
LOC: ER 04:05 → 8WST 05:32 → EDBEDREQ 05:34 → EDBEDREQTM 05:34 → ENRESERV 19:57
PROVIDERS: ADMIT Internal Medicine; ATTEND Internal Medicine
PROC: 5A1D70Z Performance of Urinary Filtration, Intermittent, Less than 6 Hours Per Day (ICD-10-PCS; principal; 2020-11-28)
PROC: 5A1D70Z Performance of Urinary Filtration, Intermittent, Less than 6 Hours Per Day (ICD-10-PCS; 2020-11-29)
PROC: 5A1D70Z Performance of Urinary Filtration, Intermittent, Less than 6 Hours Per Day (ICD-10-PCS; 2020-12-01)
DX: I13.2 Hypertensive heart and chronic kidney disease with heart failure and with stage 5 chronic kidney disease, or end stage renal disease (principal); N18.6 End stage renal disease; J96.90 Respiratory failure, unspecified, unspecified whether with hypoxia or hypercapnia; D61.818 Other pancytopenia; R18.8 Other ascites; C67.9 Malignant neoplasm of bladder, unspecified; D63.8 Anemia in other chronic diseases classified elsewhere; I48.91 Unspecified atrial fibrillation; I50.9 Heart failure, unspecified; J44.9 Chronic obstructive pulmonary disease, unspecified; M16.12 Unilateral primary osteoarthritis, left hip; R31.0 Gross hematuria; G62.9 Polyneuropathy, unspecified; M75.00 Adhesive capsulitis of unspecified shoulder; M75.100 Unspecified rotator cuff tear or rupture of unspecified shoulder, not specified as traumatic; D69.6 Thrombocytopenia, unspecified; E83.39 Other disorders of phosphorus metabolism; K21.9 Gastro-esophageal reflux disease without esophagitis; K57.90 Diverticulosis of intestine, part unspecified, without perforation or abscess without bleeding; R26.81 Unsteadiness on feet; S30.0XXA Contusion of lower back and pelvis, initial encounter; Y93.89 Activity, other specified; Y92.89 Other specified places as the place of occurrence of the external cause; Y99.8 Other external cause status; Z85.51 Personal history of malignant neoplasm of bladder; Z86.73 Personal history of transient ischemic attack (TIA), and cerebral infarction without residual deficits; Z87.891 Personal history of nicotine dependence; Z95.810 Presence of automatic (implantable) cardiac defibrillator; Z99.2 Dependence on renal dialysis; V89.2XXA Person injured in unspecified motor-vehicle accident, traffic, initial encounter; Y92.410 Unspecified street and highway as the place of occurrence of the external cause
CPT/HCPCS: 36415; 71045; 72170; 72192; 73030; 73060; 73700; 80048; 80053; 84100; 84484; 85025; 86850; 86900; 93005; 97162; 97166; 99285; J0885; J1650; J2270; J2405

== ENCOUNTER 2021-01-06 11:06 | Inpatient (IN) | payer MEDICARE, OTHER ==
[~2021-01-06] VITALS: Ht 180.3 cm; Wt 102.7 kg
[~2021-01-06 11:06] MED LIST changes: +ATOR-2 MT; -CALC-1042 PO; +CALC667C MT; -DEXT10TA4 MT; +DIPH-909 PO; +FOLI-43 MT; +METO-396 MT; -NAPHADR EACHEYE
[2021-01-06] MEDS ORDERED: MORPHINE SULFATE 4 MG/ML CPJ (NOT FOR IM USE) IV ONE ×2 (11:45→12:30)
[2021-01-06 12:45] LABS: BASOPHILS % 1.1 % (0.0-2.0); EOSINOPHILS % 6.7 % (0.0-5.0); HEMATOCRIT. 27.7 % (42.0-52.0); HEMOGLOBIN. 9.1 g/dL (14.0-18.0); LYMPHOCYTES % 20.8 % (20.0-50.0); MEAN CORPUSCULAR HEMOGLOBIN 32.5 pg (28.0-32.0); MEAN CORPUSCULAR VOLUME 99.7 fL (80.0-94.0); MEAN PLATELET VOLUME 9.7 fl (7.4-10.4); MONOCYTES % 11.2 % (2.0-8.0); NEUTROPHILS % 60.2 % (40.0-76.0); PLATELET 185 x1000/uL (130-400); RED BLOOD CELL COUNT 2.78 mill/uL (4.7-6.1); RED CELL DISTRIBUTION WIDTH 18.3 % (11.6-14.6)
[2021-01-06 12:51] LABS: CHLORIDE 101 mEq/L (98-107)
[2021-01-06 12:58] LABS: INR 1.1; PROTHROMBIN TIME 11.5 sec (9.6-11.0)
[2021-01-06] MEDS ORDERED: FUROSEMIDE 100MG/10ML VIAL IV STA (14:55)
[2021-01-06] MEDS ORDERED: SODIUM POLYSTYRENE SULFONATE 15 G/60 ML BOT PO ONE (15:00)
[2021-01-06] MEDS ORDERED: SODIUM BICARBONATE 8.4% 1 MEQ/ML 50ML SYR IV ONE (15:00)
[2021-01-06] MEDS ORDERED: INSULIN REGULAR (HUMULIN R) 300UNITS/3ML VIAL IV ONE (15:00)
[2021-01-06] MEDS ORDERED: CALCIUM CHLORIDE 1GM/10ML SYR IV ONE (15:00)
[2021-01-06] MEDS ORDERED: ALBUTEROL (0.083%) 2.5MG/3ML NEB HHN ONE (15:00)
[2021-01-06] MEDS ORDERED: DEXTROSE 50% WATER 50ML SYRINGE IV ONE (15:00)
[2021-01-06 20:15] VITALS: BP 174/70
[2021-01-06 20:30] VITALS: BP 174/70
[2021-01-06] MEDS: METOPROLOL TARTRATE 50MG TABLET PO SCH (22:17)
[2021-01-06] MEDS: AMLODIPINE 10MG TABLET PO SCH (22:17)
[2021-01-06] MEDS: MORPHINE SULFATE 2 MG/ML CPJ (NOT FOR IM USE) IV PRN (22:18)
[2021-01-06] MEDS: DIPHENHYDRAMINE 50MG/ML VIAL IV PRN (22:48)
[2021-01-07] VITALS: BP 140/69
[2021-01-07] MEDS: PIPERACILLIN/TAZOBACTAM 2.25 G in DEXTROSE 5% WATER 50 ML IV SCH ×3 (00:20→14:26)
[2021-01-07 04:00] VITALS: BP 124/68
[2021-01-07] MEDS ORDERED: LOPERAMIDE HCL 2MG CAPSULE PO PRN (05:45)
[2021-01-07] MEDS ORDERED: PIPERACILLIN/TAZOBACTAM 3.375 G/VIAL IV SCH (06:00)
[2021-01-07 06:41] LABS: PHOSPHORUS 3.2 mg/dL (2.5-4.9)
[2021-01-07 06:47] LABS: HEMOGLOBIN. 9.9 g/dL (14.0-18.0); MEAN CORPUSCULAR HEMOGLOBIN 33.7 pg (28.0-32.0); MEAN CORPUSCULAR VOLUME 98.3 fL (80.0-94.0); RED BLOOD CELL COUNT 2.95 mill/uL (4.7-6.1); RED CELL DISTRIBUTION WIDTH 17.8 % (11.6-14.6)
[2021-01-07] MEDS ORDERED: SEVELAMER CARBONATE 800 MG TABLET PO SCH (07:15)
[2021-01-07 08:00] VITALS: BP 127/64
[2021-01-07] MEDS: METOPROLOL TARTRATE 50MG TABLET PO SCH (08:33)
[2021-01-07] MEDS: AMLODIPINE 10MG TABLET PO SCH (08:33)
[2021-01-07] MEDS: AMLODIPINE 5MG TABLET PO SCH (09:00)
[2021-01-07] MEDS ORDERED: HYDROCODONE/ACETAMINOPHEN 5/325MG TABLET PO PRN (09:45)
[2021-01-07] MEDS: FOLIC ACID/VITAMIN B COMP W-C TABLET PO SCH (10:15)
[2021-01-07] MEDS ORDERED: MAGNESIUM CITRATE 300ML SOLUTION PO NR (11:00)
[2021-01-07 12:00] VITALS: BP 128/66
[2021-01-07] MEDS: CALCIUM ACETATE 667MG CAPSULE PO SCH ×2 (12:18→18:06)
[2021-01-07 14:18] LABS: PLATELET ESTIMATE NORMAL
[2021-01-07 14:20] LABS: MEAN PLATELET VOLUME 10.5 fl (7.4-10.4); PLATELET 145 x1000/uL (130-400)
[2021-01-07] MEDS: MORPHINE SULFATE 2 MG/ML CPJ (NOT FOR IM USE) IV PRN (14:27)
[2021-01-07] MEDS: DIPHENHYDRAMINE 50MG/ML VIAL IV PRN (14:31)
[2021-01-07 15:50] LABS: HEPATITIS B SURFACE ANTIGEN NEGATIVE
[2021-01-07 15:55] VITALS: BP 137/77
[2021-01-07 16:20] LABS: HEPATITIS A AB IGM NEGATIVE (NEGATIVE)
[2021-01-07] MEDS ORDERED: SIMETHICONE 80MG TABLET CHEW PO PRN (18:15)
[2021-01-07 20:00] VITALS: BP 135/62
[2021-01-07] MEDS ORDERED: EPOETIN ALFA-EPBX 4,000 UNIT/ML VIAL SUBCUT SCH (21:00)
[2021-01-08] VITALS: BP 161/85
[2021-01-08] MEDS: METOPROLOL TARTRATE 50MG TABLET PO SCH ×2 (00:09→08:33)
[2021-01-08] MEDS: PIPERACILLIN/TAZOBACTAM 2.25 G in DEXTROSE 5% WATER 50 ML IV SCH ×2 (00:10→06:43)
[2021-01-08] MEDS: MORPHINE SULFATE 2 MG/ML CPJ (NOT FOR IM USE) IV PRN (02:55)
[2021-01-08 04:00] VITALS: BP 138/84
[2021-01-08 06:37] LABS: BASOPHILS % 1.2 % (0.0-2.0); EOSINOPHILS % 9.5 % (0.0-5.0); HEMATOCRIT. 27.7 % (42.0-52.0); HEMOGLOBIN. 9.1 g/dL (14.0-18.0); LYMPHOCYTES % 20.5 % (20.0-50.0); MEAN CORPUSCULAR VOLUME 100.2 fL (80.0-94.0); MEAN PLATELET VOLUME 9.3 fl (7.4-10.4); MONOCYTES % 12.5 % (2.0-8.0); NEUTROPHILS % 56.3 % (40.0-76.0); PLATELET 151 x1000/uL (130-400); RED BLOOD CELL COUNT 2.76 mill/uL (4.7-6.1); RED CELL DISTRIBUTION WIDTH 18.2 % (11.6-14.6)
[2021-01-08] MEDS: CALCIUM ACETATE 667MG CAPSULE PO SCH ×2 (06:43→11:52)
[2021-01-08 07:08] LABS: PHOSPHORUS 3.1 mg/dL (2.5-4.9)
[2021-01-08 08:00] VITALS: BP 124/72
[2021-01-08] MEDS: AMLODIPINE 5MG TABLET PO SCH (08:33)
[2021-01-08] MEDS: FOLIC ACID/VITAMIN B COMP W-C TABLET PO SCH (08:36)
[2021-01-08 11:18] VITALS: BP 124/72
[2021-01-08] MEDS ORDERED: HYDR-4009 MT (11:19)
[2021-01-08 12:31] VITALS: BP 124/72
== END 2021-01-08 13:50 | disposition home or self-care (01) | DRG 686 ==
LOC: ER 11:13 → 5WST 16:16 → ENRESERV 19:14
PROVIDERS: ADMIT Internal Medicine; ATTEND Internal Medicine
PROC: 5A1D70Z Performance of Urinary Filtration, Intermittent, Less than 6 Hours Per Day (ICD-10-PCS; principal; 2021-01-07)
DX: C67.3 Malignant neoplasm of anterior wall of bladder (principal); I50.23 Acute on chronic systolic (congestive) heart failure; N18.6 End stage renal disease; I13.2 Hypertensive heart and chronic kidney disease with heart failure and with stage 5 chronic kidney disease, or end stage renal disease; E44.1 Mild protein-calorie malnutrition; R18.8 Other ascites; I42.9 Cardiomyopathy, unspecified; D64.9 Anemia, unspecified; E87.5 Hyperkalemia; E11.22 Type 2 diabetes mellitus with diabetic chronic kidney disease; J44.9 Chronic obstructive pulmonary disease, unspecified; I25.10 Atherosclerotic heart disease of native coronary artery without angina pectoris; K40.90 Unilateral inguinal hernia, without obstruction or gangrene, not specified as recurrent; N43.3 Hydrocele, unspecified; I86.1 Scrotal varices; R31.0 Gross hematuria; K57.30 Diverticulosis of large intestine without perforation or abscess without bleeding; I48.91 Unspecified atrial fibrillation; K21.9 Gastro-esophageal reflux disease without esophagitis; M19.90 Unspecified osteoarthritis, unspecified site; I27.20 Pulmonary hypertension, unspecified; Z82.49 Family history of ischemic heart disease and other diseases of the circulatory system; I08.1 Rheumatic disorders of both mitral and tricuspid valves; Z86.73 Personal history of transient ischemic attack (TIA), and cerebral infarction without residual deficits; Z95.810 Presence of automatic (implantable) cardiac defibrillator; Z99.2 Dependence on renal dialysis; Z68.31 Body mass index [BMI] 31.0-31.9, adult; Z53.1 Procedure and treatment not carried out because of patient's decision for reasons of belief and group pressure
CPT/HCPCS: 36415; 71045; 72192; 76870; 80048; 80053; 83735; 84100; 85025; 86705; 86709; 86803; 87340; 93976; 94644; 99285; J0885; J1200; J1815; J1940; J2270; J2543; J3490; J7040; J7060

== ENCOUNTER 2021-01-12 20:03 | Inpatient (IN) | payer MEDICARE, OTHER ==
[~2021-01-12] VITALS: Ht 180.3 cm; Wt 96.6 kg
[~2021-01-12 20:03] MED LIST changes: +HYDR-4009 MT
[2021-01-12] MEDS ORDERED: MORPHINE SULFATE 4 MG/ML CPJ (NOT FOR IM USE) IV ONE (21:45)
[2021-01-12 22:21] LABS: HEMATOCRIT. 26.6 % (42.0-52.0); MEAN CORPUSCULAR HEMOGLOBIN 33.6 pg (28.0-32.0); MEAN CORPUSCULAR VOLUME 99.3 fL (80.0-94.0); MEAN PLATELET VOLUME 9.5 fl (7.4-10.4); PLATELET 162 x1000/uL (130-400); RED BLOOD CELL COUNT 2.67 mill/uL (4.7-6.1); RED CELL DISTRIBUTION WIDTH 17.4 % (11.6-14.6)
[2021-01-12 22:26] LABS: CHLORIDE 102 mEq/L (98-107)
[2021-01-12 22:48] LABS: PLATELET ESTIMATE NORMAL
[2021-01-12] MEDS ORDERED: HYDROCODONE/ACETAMINOPHEN 5/325MG TABLET PO ONE (23:15)
[2021-01-13] MEDS ORDERED: HEPARIN 80 UNITS/KG BOLUS IV NR (03:30)
[2021-01-13] MEDS ORDERED: HEPARIN 25,000 UNITS PREMIX 250 ML IV SCH ×2 (03:30→04:30)
[2021-01-13 08:50] VITALS: BP 164/87
[2021-01-13] MEDS ORDERED: ACETAMINOPHEN 325MG TABLET PO PRN (09:45)
[2021-01-13] MEDS ORDERED: ONDANSETRON HCL 4MG/2ML INJ IV PRN (09:45)
[2021-01-13 10:00] VITALS: BP 181/89
[2021-01-13] MEDS ORDERED: HEPARIN BOLUS PRN aPTT 37-44 IV (10:00)
[2021-01-13] MEDS ORDERED: HEPARIN BOLUS PRN aPTT <36 IV (10:00)
[2021-01-13] MEDS: ENOXAPARIN 100MG/ML SYR SUBCUT SCH (11:18)
[2021-01-13] MEDS: NIFEDIPINE XL 60MG TAB PO SCH (11:19)
[2021-01-13] MEDS: HYDROCODONE/ACETAMINOPHEN 5/325MG TABLET PO PRN ×3 (11:22→22:46)
[2021-01-13 12:46] VITALS: BP 151/84
[2021-01-13 15:55] VITALS: BP 145/75
[2021-01-13 18:00] VITALS: BP 140/80
[2021-01-13 20:00] VITALS: BP 152/86
[2021-01-13] MEDS ORDERED: PNEUMOCOCCAL 23-VAL P-SAC VAC 0.5 ML IM ONE (20:00)
[2021-01-13 21:22] LABS: HEPATITIS B SURFACE ANTIGEN NEGATIVE
[2021-01-13 21:52] LABS: HEPATITIS A AB IGM NEGATIVE (NEGATIVE)
[2021-01-13 22:21] LABS: TOTAL IRON BINDING CAPACITY 263 ug/dL (250-450)
[2021-01-13] MEDS: ZOLPIDEM TARTRATE 5MG TABLET PO PRN (22:46)
[2021-01-14] VITALS: BP 134/72
[2021-01-14 04:00] VITALS: BP 124/67
[2021-01-14] MEDS: HYDROCODONE/ACETAMINOPHEN 5/325MG TABLET PO PRN ×3 (05:54→21:41)
[2021-01-14 06:19] LABS: INR 1.1; PROTHROMBIN TIME 11.5 sec (9.6-11.0)
[2021-01-14 06:26] LABS: EOSINOPHILS % 7.2 % (0.0-5.0); HEMATOCRIT. 25.7 % (42.0-52.0); HEMOGLOBIN. 8.7 g/dL (14.0-18.0); LYMPHOCYTES % 18.7 % (20.0-50.0); MEAN CORPUSCULAR HEMOGLOBIN 33.4 pg (28.0-32.0); MEAN CORPUSCULAR VOLUME 99.1 fL (80.0-94.0); MEAN PLATELET VOLUME 9.4 fl (7.4-10.4); MONOCYTES % 14.4 % (2.0-8.0); NEUTROPHILS % 58.7 % (40.0-76.0); PLATELET 152 x1000/uL (130-400); RED CELL DISTRIBUTION WIDTH 17.6 % (11.6-14.6)
[2021-01-14 06:57] LABS: PHOSPHORUS 2.8 mg/dL (2.5-4.9)
[2021-01-14 08:00] VITALS: BP 132/70
[2021-01-14] MEDS: NIFEDIPINE XL 60MG TAB PO SCH (08:57)
[2021-01-14] MEDS: ENOXAPARIN 100MG/ML SYR SUBCUT SCH (08:58)
[2021-01-14 12:00] VITALS: BP 140/69
[2021-01-14 16:00] VITALS: BP 137/78
[2021-01-14] MEDS: CEFAZOLIN 1000MG PREMIX 50 ML IV SCH (17:31)
[2021-01-14 20:00] VITALS: BP 138/72
[2021-01-14] MEDS: ZOLPIDEM TARTRATE 5MG TABLET PO PRN (22:22)
[2021-01-15] VITALS: BP 142/83
[2021-01-15] MEDS: CEFAZOLIN 1000MG PREMIX 50 ML IV SCH (02:22)
[2021-01-15] MEDS: HYDROCODONE/ACETAMINOPHEN 5/325MG TABLET PO PRN ×2 (03:52→08:43)
[2021-01-15 04:00] VITALS: BP 154/56
[2021-01-15 08:43] VITALS: BP 157/75
[2021-01-15] MEDS: NIFEDIPINE XL 60MG TAB PO SCH (08:43)
[2021-01-15] MEDS ORDERED: HYDR-4009 MT (09:28)
[2021-01-15] MEDS ORDERED: CARV6.2548 MT (09:30)
[2021-01-15] MEDS ORDERED: LOSA100T32 MT (09:30)
[2021-01-15 11:14] VITALS: BP 152/75
== END 2021-01-15 12:00 | disposition home or self-care (01) | DRG 299 ==
LOC: ER 20:03 → 8WST 01-13 01:31 → ENRESERV 01-13 08:08 → 8WST 01-14 22:15
PROVIDERS: ADMIT Internal Medicine; ATTEND Internal Medicine
PROC: 5A1D70Z Performance of Urinary Filtration, Intermittent, Less than 6 Hours Per Day (ICD-10-PCS; principal; 2021-01-14)
DX: I82.C12 Acute embolism and thrombosis of left internal jugular vein (principal); N18.6 End stage renal disease; I50.23 Acute on chronic systolic (congestive) heart failure; I42.9 Cardiomyopathy, unspecified; I13.2 Hypertensive heart and chronic kidney disease with heart failure and with stage 5 chronic kidney disease, or end stage renal disease; E44.0 Moderate protein-calorie malnutrition; I48.91 Unspecified atrial fibrillation; I27.20 Pulmonary hypertension, unspecified; E11.22 Type 2 diabetes mellitus with diabetic chronic kidney disease; D64.9 Anemia, unspecified; I08.1 Rheumatic disorders of both mitral and tricuspid valves; R31.0 Gross hematuria; J44.9 Chronic obstructive pulmonary disease, unspecified; Z82.49 Family history of ischemic heart disease and other diseases of the circulatory system; Z85.51 Personal history of malignant neoplasm of bladder; Z95.0 Presence of cardiac pacemaker; Z79.899 Other long term (current) drug therapy; Z87.891 Personal history of nicotine dependence; Z68.29 Body mass index [BMI] 29.0-29.9, adult
CPT/HCPCS: 36415; 71045; 73090; 80048; 80053; 82728; 83540; 83550; 83735; 83880; 84100; 84484; 85025; 86705; 86709; 86803; 87340; 90732; 93005; 93970; 93971; 99291; J0690; J1644; J1650; J2270